=== PATIENT | male | born 1975 | race Caucasian/White ===

== ENCOUNTER 2019-08-18 00:56 | Emergency (ER) | payer BC, SELFPAY ==
--- NOTE | ~2019-08-18 | XR_ITS ---
EXAMINATION: XR chest 2V DATE: 08/18/2019 01:38 INDICATION: Shortness of breath and anxiety TECHNIQUE: PA and lateral views of the chest were obtained. COMPARISON: None FINDINGS: Mild biapical pleural-parenchymal scarring. No other airspace opacities, pulmonary edema, pleural eff usion or pneumothorax. The cardiomediastinal silhouette is normal. Visualized bones and soft tissues are unremarkable. IMPRESSION: 1. No acute cardiopulmonary disease. Reviewed, dictated and finalized at location A.
[2019-08-18 00:59] VITALS: BP 155/96; PULSE 65; RESP 20; TEMP 36.5; O2SAT 100
--- NOTE | 2019-08-18 01:20 | ECG_ITS ---
Measurements Intervals [place] Rate: 64 P: 56 HI: 161 QRS: -44 QRSD: 108 T: 20 QT: 382 QTc: 397 Interpretive Statements SINUS RHYTHM LEFT AXIS DEVIATION BASELINE ARTIFACT- I, III, AVF BORDERLINE ECG Electronically Signed On 08-18-2019 7:05:26 CDT by Denver Silverio D.O.
--- NOTE | 2019-08-18 01:21 | ED.GENADULT ---
HPI - General Adult General Chief complaint: Unspecified Stated complaint: anxiety Time Seen by Provider: 08/18/19 01:07 History of Present Illness HPI narrative: Patient presents via personal car for excessive stress and anxiety. He says he cannot sleep because every time he falls asleep he wakes up feeling short of breath. He says he has not slept in 3 days. He has had episodes like this before. He has Xanax at home and try to have one which did not help. He has never seen a psychiatrist. He sometimes drinks more than a small amount. He last drank 3 days ago. He is a mortgage operations manager. He has no pain and he has not been sick recently. He takes testosterone shots, but his last check his testosterone was excessively high. He went on vacation a few weeks ago and took extra shots before the vacation. He is delaying his shots now until the level comes back into the normal range. His PCP is at [place]. Onset (ago): day(s) Severity: severe Related Data Allergies Allergy/AdvReac Type Severity Reaction Status Date / Time bacitracin Allergy Redness of Verified 08/18/19 01:01 [From Neosporin Skin ([id number])] neomycin Allergy Redness of Verified 08/18/19 01:01 [From Neosporin Skin ([id number])] polymyxin B Allergy Redness of Verified 08/18/19 01:01 [From Neosporin Skin ([id number])] Review of Systems Review of Systems: Narrative: CONSTITUTIONAL: Denies fever, chills, or sweats. EYES: Denies visual changes, redness, or discharge. ENT: Denies rhinorrhea, congestion, sore throat, or otalgia. CARDIOVASCULAR: Denies chest pain, palpitations, or edema. RESPIRATORY: Denies cough GASTROINTESTINAL: Denies abdominal pain, nausea, vomiting, or diarrhea. GENITOURINARY: Denies dysuria or hematuria. SKIN: Denies rash or itching. MUSCULOSKELETAL: Denies back pain, joint pain, or myalgia. NEUROLOGIC: Denies headache, numbness, or weakness. PSYCHIATRIC: He has insomnia and severe anxiety.. [facility] Past Medical History Medical History (Updated 08/18/19 @ 01:30 by Samantha Segovia MD) Anxiety Hypomania Hypotestosteronism Insomnia Surgical History Surgical History (Updated 08/18/19 @ 01:22 by Samantha Segovia MD) History of appendectomy History of lumbar laminectomy History of rhinoplasty Social History Social History (Updated 08/18/19 @ 01:22 by Samantha Segovia MD) Smoking status: Never smoker Alcohol intake: current Substance use: current Substance use type: marijuana Exam Narrative: Exam Narrative: GENERAL: A well muscled man with full unkempt hair, pacing the room, with frequent sighs. HEAD: Normocephalic, atraumatic. EYES: PERRLA and EOMI. ENT: Nares clear, no rhinorrhea or epistaxis. Mucous membranes moist. NECK: Supple. CHEST: Clear to auscultation. No respiratory distress. HEART: Regular rate and rhythm. No murmur heard. Normal peripheral pulses. ABDOMEN: Soft, nontender, nondistended, normal active bowel sounds. EXTREMITIES: Normal range of motion. No edema. SKIN: Warm, dry, no rash. NEURO: No focal deficits. Alert and oriented x3. PSYCH: Appears very worried. Course Reevaluation(s) Reevaluation #1: Went in to tell the patient that all of his studies were normal. That I could find no disease that should cause shortness of breath, and that he could go home and take a couple of his Xanax to get to sleep tonight. Otherwise his 5 sleeping pills will be available at his pharmacy tomorrow. Date: 08/18/19 Time: 02:05 Vital Signs Vital signs: Vital Signs Temperature 97.7 F 08/18/19 00:59 Pulse Rate 65 08/18/19 00:59 Respiratory Rate 20 08/18/19 00:59 Blood Pressure 155/96 H 08/18/19 00:59 Pulse Oximetry 100 08/18/19 00:59 Temperature 97.7 F 08/18/19 00:59 Pulse Rate 74 08/18/19 01:27 Respiratory Rate 18 08/18/19 01:27 Blood Pressure 154/84 H 08/18/19 01:27 Pulse Oximetry 98 08/18/19 01:27 Medical Decision Making Medical Records Me
[2019-08-18 01:26] VITALS: PULSE 64
[2019-08-18 01:27] VITALS: BP 154/84; PULSE 74; RESP 18; O2SAT 98
[2019-08-18 01:40] LABS: Basophils Absolute Auto 0.1 K/mm3 (0.0-0.1); Basophils Percent Auto 1.2 % (0.2-1.2); Eosinophils Absolute Auto 0.4 K/mm3 (0-0.3); Eosinophils Percent Auto 5.2 % (0-4.4); Hematocrit 46.5 % (42.0-52.0); Hemoglobin 15.8 g/dL (14.0-18.0); Immature Granulocyte Absolute 0.02 K/mm3 (0.00-0.031); Immature Granulocyte Percent A 0.3 % (0-0.5); Lymphocytes Absolute Auto 3.72 K/mm3 (0.9-3.2); Lymphocytes Percent Auto 48.1 % (18.3-44.2); Mean Corpuscular Hemoglobin 31.1 pg (26-34); Mean Corpuscular Volume 91.5 fl (80-100); Mean Platelet Volume 9.5 fl (7.4-10.4); Monocytes Absolute Auto 0.8 K/mm3 (0.1-0.6); Monocytes Percent Auto 10.9 % (2.6-8.5); Neutrophils Absolute Auto 2.7 K/mm3 (1.3-6.7); Neutrophils Percent Auto 34.3 % (45.5-73.1); Platelet Count Result 277 k/mm3 (150-375); Red Blood Count 5.08 M/mm3 (4.6-6.20); Red Cell Distribution Width 12.8 % (11.5-14.5); White Blood Count 7.7 K/mm3 (4.5-10.0)
[2019-08-18 01:45] LABS: Ethanol < 10 mg/dL (<10)
[2019-08-18 01:46] LABS: Alanine Aminotransferase 56 U/L (4-50); Alkaline Phosphatase 37 U/L (38-126); Aspartate Amino Transferase 42 U/L (17-59); Bilirubin,Total 0.2 mg/dL (0.2-1.3); Blood Urea Nitrogen 17 mg/dL (9-20); Calcium 8.7 mg/dL (8.4-10.2); Carbon Dioxide 24 mmol/L (22-30); Chloride 106 mmol/L (98-107); Estimated Glomerular Filt Rate > 60; Glucose 95 mg/dL (75-110); Potassium 3.7 mmol/L (3.4-5.0); Sodium 137 mmol/L (137-145)
[2019-08-18 01:51] LABS: D Dimer 0.27 ug/mL (<0.48)
[2019-08-18 01:57] LABS: NT Pro B Type Natriuretic Pept 42 PG/ML (5-100)
[2019-08-18 02:22] VITALS: BP 120/72; PULSE 64; RESP 18; O2SAT 98
== END 2019-08-18 02:24 | disposition home or self-care (01) ==
LOC: ANHED 01:52
PROVIDERS: Emergency Provider Emergency Medicine; PCP Internal Medicine Endocrinology, Diabetes & Metabolism
DX: F41.9 Anxiety disorder, unspecified (principal); G47.00 Insomnia, unspecified; E29.1 Testicular hypofunction; R94.31 Abnormal electrocardiogram [ECG] [EKG]
CPT/HCPCS: 36415; 71046; 80053; 80307; 83880; 85025; 85380; 93005; 99283

== ENCOUNTER → 2019-11-25 10:50 | Outpatient (CLI) | payer BC, SELFPAY ==
--- NOTE | ~2019-11-25 | US_ITS ---
US right upper quadrant INDICATION: Elevated liver function tests. Transaminitis. PROCEDURE: Realtime right upper abdominal ultrasound. COMPARISON: No prior studies for comparison. FINDINGS: The pancreas is normal without focal mass or pancreatic ductal dilation. Liver echotexture is normal without focal mass or intrahepatic biliary dilatation. There is normal directional flow i n the portal vein. The gallbladder is normal without stones, gallbladder wall thickening or pericholecystic fluid. Comm on bile duct measures 3 mm. No sonographic Rice's sign. IMPRESSION: 1: Normal limited abdominal ultrasound. Reviewed, dictated and finalized at location B.
== END ==
PROVIDERS: Visit Provider Internal Medicine Gastroenterology
DX: R74.0 Nonspecific elevation of levels of transaminase and lactic acid dehydrogenase [LDH] (principal)
CPT/HCPCS: 76705

== ENCOUNTER 2019-12-21 16:15 | Emergency (ER) | payer OTHER, BC, SELFPAY ==
[2019-12-21] VITALS (11 sets, daily range): BP systolic 133–182; BP diastolic 77–98; PULSE 58–78; RESP 17–20; TEMP 36.3–36.7; O2SAT 97–100
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
--- NOTE | ~2019-12-21 | CT_ITS ---
EXAMINATION: CT thoracic lumbar wo con DATE: 12/21/2019 17:26 INDICATION: TECHNIQUE: Computed tomography (CT) of the thoracic and lumbar spine was performed without intravenou s contrast. The mA was adjusted according to patient size. Iterative reconstruction technique was emp loyed. Exam dose: 2036.80 mGy-cm total exam DLP. Thoracic spine COMPARISON: None FINDINGS: Mild thoracic scoliosis. No thoracic spine fracture or dislocation or bone destruction is e vident. Left L5 laminectomy. No fracture or spondylolisthesis. There is moderately severe degenerative disease at L5-S1. IMPRESSION: No thoracic or lumbar spine fracture is detected. Status post left L5 laminectomy Mildly severe degenerative disc disease at L5-S1 Reviewed, dictated and finalized at Location A. Reviewed, dictated and finalized at location A.
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
[2019-12-21] MEDS: diazePAM INJ (*CRX) 10 MG/2 ML SYRINGE 5 MG IM (17:50)
[2019-12-21] MEDS: KETOROLAC (*BKC) 60 MG/2 ML VIAL IM (17:50)
[2019-12-21] MEDS: ONDANSETRON INJ 4 MG/2 ML VIAL IV PUSH (18:50)
[2019-12-21] MEDS: MORPHINE SULFATE (*CRX) 4 MG/ML INJ IV PUSH (18:50)
--- NOTE | 2019-12-21 19:02 | PC.NURSE ---
awa called to transfer patient to [facility] CHRISTINE [address]
--- NOTE | 2019-12-21 19:43 | PC.NURSE ---
called [facility] to update ETA> ETA 20 minutes.
[2019-12-21] MEDS: HYDROmorphone HCL INJ (*CRX) 1 MG/ML SYR 0.5 MG IV PUSH (20:24)
== END 2019-12-21 20:42 | disposition short-term general hospital (02) ==
PROVIDERS: Emergency Provider Family Medicine
DX: S12.191A Other nondisplaced fracture of second cervical vertebra, initial encounter for closed fracture (principal); S12.490A Other displaced fracture of fifth cervical vertebra, initial encounter for closed fracture; S12.590A Other displaced fracture of sixth cervical vertebra, initial encounter for closed fracture; K50.90 Crohn's disease, unspecified, without complications; V86.55XA Driver of 3- or 4- wheeled all-terrain vehicle (ATV) injured in nontraffic accident, initial encounter
CPT/HCPCS: 70450; 71046; 71110; 72125; 72128; 72131; 96372; 96374; 96375; 99285; J1170; J1885; J2270; J2405; J3360; L0140

== ENCOUNTER 2020-10-05 02:49 | Emergency (ER) | payer BC, SELFPAY ==
--- NOTE | ~2020-10-05 | XR_ITS ---
XR chest 1V portable 10/05/2020 03:52 Indication: Dyspnea. Possible pneumonia. Procedure: AP portable chest Comparison: 12/21/2019 Findings: Right basilar infiltrates. Heart size normal. No significant effusion or pneumothorax. No a cute osseous abnormality. Impression: 1: Right basilar infiltrates may represent atelectasis or developing pneumonia. Reviewed, dictated and finalized at location A. Impression: 1: Right basilar infiltrates may represent atelectasis or developing pneumonia.
[2020-10-05 02:57] VITALS: BP 149/89; PULSE 102; RESP 16; TEMP 36.7; O2SAT 99
--- NOTE | 2020-10-05 03:06 | ED.URI ---
HPI - URI/Sore Throat General Chief Complaint: Upper Respiratory Infection Stated Complaint: dehydrated/ family covid + Time Seen by Provider: 10/05/20 03:05 Source: patient Mode of arrival: ambulatory Limitations: no limitations History of Present Illness HPI Narrative: Patient is a 45-year-old male who presents for evaluation of intermittent fever, loss of sense of taste and smell. Patient states he has felt unwell over the past 10 days, states his was diagnosed with Covid 2 days prior to him. States he feels that he was exposed from his daughter who did well with the illness and did not have any adverse effect. Patient reports nausea, general malaise, intermittent fever. He denies any cough or shortness of breath. He denies chest pain. States he is exhausted. He has been ambulatory without any focal weakness or numbness. He reports congestion. He denies diarrhea. Related Data Allergies Allergy/AdvReac Type Severity Reaction Status Date / Time bacitracin Allergy Itching Verified 10/05/20 03:19 [From Neosporin ([id number])] neomycin Allergy Itching Verified 10/05/20 03:19 [From Neosporin ([id number])] polymyxin B Allergy Itching Verified 10/05/20 03:19 [From Neosporin ([id number])] Review of Systems Review of Systems: Narrative: CONSTITUTIONAL: Reports fever and chills EYES: Denies visual changes, redness, or discharge. ENT: Reports rhinorrhea and congestion CARDIOVASCULAR: Denies chest pain, palpitations, or edema. RESPIRATORY: Denies cough or dyspnea. GASTROINTESTINAL: Denies abdominal pain, reports nausea GENITOURINARY: Denies dysuria or hematuria. SKIN: Denies rash or itching. MUSCULOSKELETAL: Denies back pain, reports joint pain and myalgias NEUROLOGIC: Reports headache, denies focal weakness or numbness PMFSH Past Medical History Medical History Anxiety History of Crohn's disease Hypomania Hypotestosteronism Insomnia Surgical History Surgical History History of appendectomy History of lumbar laminectomy History of rhinoplasty Social History Social History Smoking status: Never smoker Alcohol intake: current Substance use: current Substance use type: marijuana Gender identity (if verbalized by the patient): Male Sexual Orientation (if Verbalized by the Patient): Straight or Heterosexual Exam Narrative: Exam Narrative: GENERAL: Awake, alert, conversant HEAD: Normocephalic, atraumatic. EYES: 2+ PERRLA and EOMI. ENT: Nares clear, no rhinorrhea or epistaxis. Mucous membranes moist. NECK: Supple. CHEST: No respiratory distress, breathing even and non labored HEART: Mildly tachycardic rate, sinus rhythm ABDOMEN:Non distended, non tender EXTREMITIES: Normal range of motion. No edema. SKIN: Warm, dry, no rash. NEURO:No focal deficits. Alert and oriented x3 Course Vital Signs Vital signs: Vital Signs Temperature 36.7 C 10/05/20 02:57 Pulse Rate 102 H 10/05/20 02:57 Respiratory Rate 16 10/05/20 02:57 Blood Pressure 149/89 H 10/05/20 02:57 Pulse Oximetry 99 10/05/20 02:57 Temperature 36.7 C 10/05/20 02:57 Pulse Rate 77 10/05/20 05:24 Respiratory Rate 14 10/05/20 05:24 Blood Pressure 167/87 H 10/05/20 05:24 Pulse Oximetry 100 10/05/20 05:24 MDM - URI/Sore Throat MDM Narrative Medical decision making narrative: Patient presenting for evaluation of general malaise, nausea in the setting of what is likely Covid infection given his is Covid positive. Patient at the time of assessment has mild tachycardia, no respiratory symptoms. Denies chest pain or shortness of breath. No anginal type symptoms. Laboratory results are reassuring. No significant kidney injury or electrolyte derangement. No evidence of rhabdomyolysis. Patient without any matty
[2020-10-05 03:18] VITALS: O2SAT 100
[2020-10-05] MEDS: SODIUM CHLORIDE 0.9% IV 1,000 ML 999 ML IV CONT (03:57)
[2020-10-05] MEDS: ONDANSETRON INJ 4 MG/2 ML VIAL IV PUSH (03:58)
[2020-10-05 04:22] LABS: Basophils Percent Auto 0.7 % (0.2-1.2); Eosinophils Percent Auto 0.5 % (0-4.4); Hematocrit 53.5 % (42.0-52.0); Hemoglobin 17.6 g/dL (14.0-18.0); Immature Granulocyte Absolute 0.01 K/mm3 (0.00-0.031); Immature Granulocyte Percent A 0.2 % (0-0.5); Lymphocytes Absolute Auto 1.14 K/mm3 (0.9-3.2); Lymphocytes Percent Auto 26.6 % (18.3-44.2); Mean Corpuscular HGB Conc 32.9 g/dl (32-36); Mean Corpuscular Hemoglobin 29.1 pg (26-34); Mean Corpuscular Volume 88.4 fl (80-100); Mean Platelet Volume 9.5 fl (7.4-10.4); Monocytes Absolute Auto 0.6 K/mm3 (0.1-0.6); Monocytes Percent Auto 14.7 % (2.6-8.5); Neutrophils Absolute Auto 2.5 K/mm3 (1.3-6.7); Neutrophils Percent Auto 57.3 % (45.5-73.1); Platelet Count Result 215 k/mm3 (150-375); Red Blood Count 6.05 M/mm3 (4.6-6.20); Red Cell Distribution Width 13.7 % (11.5-14.5); White Blood Count 4.3 K/mm3 (4.5-10.0)
[2020-10-05 04:37] LABS: Alanine Aminotransferase 37 U/L (4-50); Albumin Level 4.2 g/dL (3.5-5.1); Alkaline Phosphatase 42 U/L (38-126); Anion Gap 11 mmol/L (8-16); Aspartate Amino Transferase 38 U/L (17-59); Bilirubin,Total 0.6 mg/dL (0.2-1.3); Blood Urea Nitrogen 12 mg/dL (9-20); Calcium 9.3 mg/dL (8.4-10.2); Carbon Dioxide 27 mmol/L (22-30); Chloride 101 mmol/L (98-107); Creatine Kinase 148 U/L (55-170); Estimated CRCL calculation 72 ml/min; Estimated Glomerular Filt Rate 51; Glucose 87 mg/dL (65-110); Potassium 4.2 mmol/L (3.4-5.0); Sodium 139 mmol/L (137-145)
[2020-10-05 05:24] VITALS: BP 167/87; PULSE 77; RESP 14; O2SAT 100
[2020-10-05 07:00] VITALS: BP 161/96; PULSE 77; RESP 16; O2SAT 100
[2020-10-05 15:38] LABS: SARS-CoV-2 RNA PCR Positive
== END 2020-10-05 06:34 | disposition home or self-care (01) ==
PROVIDERS: Emergency Provider Emergency Medicine
DX: U07.1 COVID-19 (principal); J06.9 Acute upper respiratory infection, unspecified; I10 Essential (primary) hypertension; K50.90 Crohn's disease, unspecified, without complications
CPT/HCPCS: 36415; 71045; 80053; 82550; 85025; 96361; 96374; 96375; 99284; C9803; J0131; J2405; J7030; U0003; U0005

== ENCOUNTER 2020-11-25 21:55 | Observation (INO) | payer BC, SELFPAY ==
--- NOTE | ~2020-11-25 | XR_ITS ---
XR chest 2V DATE: 11/25/2020 22:36 INDICATION: Generalized chest pain, shortness of breath for one week TECHNIQUE: PA and lateral views COMPARISON: 10/05/2020 portable AP chest 08/18/2019 2 view chest FINDINGS: Status post lower anterior cervical spine surgical fusion. Normal heart size. No hilar or mediastinal enlargement. No pulmonary infiltrate or consolidation, ple ural effusion or pulmonary vascular congestion or pneumothorax. Mild thoracic scoliosis. IMPRESSION: No active cardiopulmonary disease Reviewed, dictated and finalized at location A.
--- NOTE | 2020-11-25 22:02 | ECG_ITS ---
Measurements Intervals [place] Rate: 108 P: MA: 0 QRS: -59 QRSD: 97 T: 44 QT: 304 QTc: 408 Interpretive Statements ATRIAL FIBRILLATION WITH RAPID VENTRICULAR RESPONSE LEFT ANTERIOR FASCICULAR BLOCK ABNORMAL ECG Electronically Signed On 11-26-2020 5:54:47 CDT by Denver Silverio D.O.
[2020-11-25 22:25] LABS: Basophils Absolute Auto 0.1 K/mm3 (0.0-0.1); Basophils Percent Auto 0.8 % (0.2-1.2); Eosinophils Absolute Auto 0.2 K/mm3 (0-0.3); Eosinophils Percent Auto 2.1 % (0-4.4); Hematocrit 51.3 % (42.0-52.0); Hemoglobin 16.8 g/dL (14.0-18.0); Immature Granulocyte Absolute 0.06 K/mm3 (0.00-0.031); Immature Granulocyte Percent A 0.5 % (0-0.5); Lymphocytes Absolute Auto 3.16 K/mm3 (0.9-3.2); Mean Corpuscular HGB Conc 32.7 g/dl (32-36); Mean Corpuscular Hemoglobin 29.5 pg (26-34); Mean Platelet Volume 9.1 fl (7.4-10.4); Monocytes Absolute Auto 0.8 K/mm3 (0.1-0.6); Monocytes Percent Auto 7.6 % (2.6-8.5); Neutrophils Absolute Auto 6.5 K/mm3 (1.3-6.7); Platelet Count Result 373 k/mm3 (150-375); Red Cell Distribution Width 14.7 % (11.5-14.5); White Blood Count 10.9 K/mm3 (4.5-10.0)
[2020-11-25 22:33] LABS: Anion Gap 11 mmol/L (8-16); Blood Urea Nitrogen 17 mg/dL (9-20); Calcium 8.8 mg/dL (8.4-10.2); Carbon Dioxide 21 mmol/L (22-30); Chloride 109 mmol/L (98-107); Estimated Glomerular Filt Rate 51; Glucose 129 mg/dL (65-110); Potassium 3.9 mmol/L (3.4-5.0); Sodium 141 mmol/L (137-145)
[2020-11-25 22:44] VITALS: BP 124/99; PULSE 101; RESP 19; O2SAT 98
[2020-11-25 22:45] LABS: Troponin I 0.016 ng/mL (0.000-0.034)
[2020-11-25 22:55] LABS: INR 0.9; Prothrombin Time 12.3 Seconds (11.1-14.7)
[2020-11-25 22:56] LABS: Partial Thromboplastin Time 30.8 SECONDS (22.3-36.8)
[2020-11-25] MEDS: ASPIRIN 81 MG CHEWABLE TABLET 324 MG PO (23:24)
[2020-11-25 23:45] VITALS: BP 126/78; PULSE 93; RESP 15; O2SAT 99
[2020-11-26] VITALS (20 sets, daily range): BP systolic 128–154; BP diastolic 66–104; PULSE 66–132; RESP 14–20; TEMP 36–36.9; O2SAT 98–100; BMI 30.8
--- NOTE | 2020-11-26 | ECHO_ITS ---
Patient Info Name: Rich Calle Age: 45 years : 1975 Gender: Male Ht: 73 in Wt: 230 lbs BSA: 2.34 m2 HR: 101 bpm BP: 141 / 81 mmHg Heart Rhythm: Atrial Fibrillation Exam Date: 11/26/2020 1:18 PM Exam Location: [facility] Pulmonary Patient Status: Outpatient Admit Date: 11/26/2020 Staff Ordering Physician: Robert Bear MD Community Development Officer: Prasanth Rice RDCS, RT Attending Provider: Heidi Santa PA-C Referring Physician: Chema ALATORRE; Exam Type: CA echo doppler color flow Study Info Indications I48.1 - Persistent atrial fibrillation Complete two-dimensional, color flow and Doppler transthoracic echocardiogram is performed. Strain analysis performed. Summary 1. Complete two-dimensional, color flow and Doppler transthoracic echocardiogram is performed. 2. Strain analysis performed. 3. Left ventricular chamber dimension is normal. 4. Left ventricular systolic function is mildly reduced, estimated at 50-55%. 5. There is moderately increased left ventricular wall thickness. 6. The left ventricular diastolic function is indeterminate. 7. Global longitudinal strain is abnormal at -10 %. 8. There is mild mitral valve regurgitation. 9. There is mild tricuspid valve regurgitation. Left Ventricle Left ventricular chamber dimension is normal. Left ventricular systolic function is mildly reduced, estimated at 50-55%. There is moderately increased left ventricular wall thickness. The left ventricular diastolic function is indeterminate. Global longitudinal strain is abnormal at -10 %. Right Ventricle Right ventricular chamber dimension is normal. Right ventricular systolic function is normal. Left Atria Left atrial chamber dimension is normal. Right Atria Right atrial chamber dimension is normal. Atrial Septum Intact interatrial septum visualized by color flow imaging. Aortic Valve The aortic valve is trileaflet. There is mild aortic valve sclerosis. There is no aortic valve stenosis. There is trace aortic valve regurgitation. Pulmonic Valve The pulmonic valve is normal. There is no pulmonic valve stenosis. There is trace pulmonic regurgitation. Mitral Valve The mitral valve has normal leaflets. There is no mitral valve stenosis. There is mild mitral valve regurgitation. Tricuspid Valve The tricuspid valve leaflets are normal. There is no significant tricuspid valve stenosis. There is mild tricuspid valve regurgitation. Pericardium/Pleural The pericardium appears normal. There is no pericardial effusion. Inferior Vena Cava Normal inferior vena cava with >50% collapse upon inspiration consistent with normal right atrial pressure, 5 mmHg. Aorta The aortic root size at the sinus of Valsalva is normal. The prox ascending aorta size is normal. Left Ventricular Outflow Tract Name Value Normal LVOT 2D LVOT Diameter 2.3 cm Mitral Valve Name Value Normal MV Doppler MV Decel [place]
--- NOTE | 2020-11-26 00:26 | ED.ARRPALP ---
HPI - Arrhythmia/Palpitations General Chief Complaint: Arrhythmia/Palpitations Stated Complaint: palpations Time Seen by Provider: 11/25/20 22:22 Source: patient Mode of arrival: ambulatory Limitations: no limitations History of Present Illness HPI narrative: 45-year-old male For a couple weeks after going on vacation he has been waking up suddenly at night short of breath and with racing heart and very anxious He has been using CPAP for about 6 months and it was originally helping but then he had to have it adjusted and he thinks it is now getting worse Because of the excessive waking up at night and difficulty getting back to sleep he has been getting drowsy during the day as well He received a prescription for Ambien and took 1 which she thought helped him sleep for about 45 minutes only and he was apprehensive about repeating the process this evening He has not had any chest pain and apart from being fast he had not noticed that his heart rate was irregular There is no cough or fever He does not smoke He works out quite a lot and is taking supplements for that in the past but is not actively taking any right now He is a light social drinker Related Data Allergies Allergy/AdvReac Type Severity Reaction Status Date / Time bacitracin Allergy Itching Verified 11/25/20 22:51 [From Neosporin ([id number])] neomycin Allergy Itching Verified 11/25/20 22:51 [From Neosporin ([id number])] polymyxin B Allergy Itching Verified 11/25/20 22:51 [From Neosporin ([id number])] Review of Systems Review of Systems: All systems reviewed & are unremarkable except as noted in HPI and below Constitutional: Constitutional: Reports no additional constitutional complaints, Denies chills, Reports fatigue, Denies fever(s), Denies headache(s) and Reports weakness Eyes: Eyes: Reports no additional eye complaints and Denies change in vision ENT: Denies headache(s) and Denies sore throat Cardiovascular: Cardiovascular: Denies chest pain, Reports rapid heart rate and Denies dyspnea Respiratory: Respiratory: Denies cough and Reports dyspnea Gastrointestinal: Gastrointestinal: Denies abdominal pain, Denies diarrhea and Denies vomiting Genitourinary: Genitourinary: Denies dysuria and Denies urinary frequency Musculoskeletal: Musculoskeletal: Denies deformity, Denies arthralgias, Denies joint swelling and Denies numbness Integumentary/Breasts: Skin/Breast: Denies rash and Denies wounds Neurologic: Denies headache(s), Denies focal weakness and Denies numbness Psychiatric: Psychiatric: Reports no additional psychiatric complaints Endocrine: Endocrine: Reports no additional endocrine complaints Hematologic/Lymphatic: Hematologic/Lymphatic: Reports no additional hematologic/lymphatic complaints Allergic/Immunologic: Allergic/Immunologic: Reports no additional allergic/immunologic complaints PMFSH Past Medical History Medical History Anxiety History of Crohn's disease Hypomania Hypotestosteronism Insomnia Surgical History Surgical History History of appendectomy History of lumbar laminectomy History of rhinoplasty Social History Social History Smoking status: Never smoker Alcohol intake: current Substance use: current Substance use type: marijuana Gender identity (if verbalized by the patient): Male Sexual Orientation (if Verbalized by the Patient): Straight or Heterosexual Exam Const: General: cooperative, healthy appearing and no acute distress Orientation/consciousness: patient oriented x3 (alert) HENMT: Head: normal to inspection, normocephalic and atraumatic Ears: external ears normal General nose exam: no epistaxis Mouth: Yes moist mucous membranes Eyes: Conjunctivae: conjunctivae normal EOM: EOMs i
[2020-11-26] MEDS: METOPROLOL TARTRATE TAB 25 MG, METOPROLOL TARTRATE TAB 12.5 MG 37.5 MG PO (01:08)
[2020-11-26] MEDS: ENOXAPARIN 100 MG/ML SYRINGE SUB-Q ×2 (01:10→10:11)
[2020-11-26 01:37] LABS: Troponin I 0.024 ng/mL (0.000-0.034)
[2020-11-26 01:56] LABS: Free T4 Free Thyroxine 0.76 ng/mL (0.78-2.19)
[2020-11-26] MEDS: LACTATED RINGERS 1,000 ML 50 ML IV CONT (02:35)
--- NOTE | 2020-11-26 03:39 | PM.IMHP ---
H&P: HPI History of Present Illness Date/Time: 11/26/20 03:39 Chief Complaint: Palpitations Narrative: This is a 45-year-old male with significant past medical history patient presented to the emergency room due to palpitations patient states that he has been having fast heart rate for the last several days or so he uses CPAP at nighttime and has been having problems wearing his CPAP as well feeling as fixated with his CPAP mask when his having episodes of palpitations he was on vacation last week and had to cut his vacation short due to feeling a lot of discomfort during these spells of pounding fast heart rate and went to visit his primary care physician and his ENT he was prescribed Ambien and trazodone he tried Ambien firs and only worked for 15 minutes after taking 2 hours to work. Patient denies any lightheadedness, dizziness, shortness of breath, cough, sputum production, fevers ,chills, rigors, nausea ,vomiting ,he had some discomfort on his left arm he denies use of any substances or alcohol or tobacco and no use of energy drinks. Preliminary workup in Emergency room was significant for atrial fibrillation with rapid ventricular response. Review of Systems Review of Systems: Palpitations, PND, insomnia. Constitutional: Constitutional: Denies chills, Denies fatigue, Denies fever(s), Denies lethargy and Denies malaise Eyes: Eyes: Denies change in vision ENT: Denies dysphagia, Denies dizziness, Denies nasal congestion, Denies nasal discharge, Denies nasal obstruction and Denies odynophagia Cardiovascular: Cardiovascular: Reports chest pain, Reports irregular heart rhythm, Reports palpitations and Reports paroxysmal nocturnal dyspnea Respiratory: Respiratory: Denies cough Gastrointestinal: Gastrointestinal: Denies abdominal pain, Denies diarrhea, Denies nausea and Denies vomiting Genitourinary: Genitourinary: Reports no additional male genitourinary complaints Musculoskeletal: Musculoskeletal: Reports no additional musculoskeletal complaints Integumentary/Breasts: Skin/Breast: Reports system reviewed and no additional complaints, except as docu Neurologic: Reports system reviewed and no additional complaints, except as documented Psychiatric: Psychiatric: Reports no additional psychiatric complaints Endocrine: Endocrine: Reports no additional endocrine complaints Hematologic/Lymphatic: Hematologic/Lymphatic: Reports no additional hematologic/lymphatic complaints Allergic/Immunologic: Allergic/Immunologic: Reports no additional allergic/immunologic complaints PMFSH Past Medical History Medical History Anxiety History of Crohn's disease Hypomania Hypotestosteronism Insomnia Surgical History Surgical History History of appendectomy History of lumbar laminectomy History of rhinoplasty Family History Family History (Updated 11/26/20 @ 02:24 by Ashley Dillard RN) Mother Hx of thyroidectomy Mother Thyroid malignant neoplasm Social History Social History Smoking status: Never smoker Alcohol intake: current Drinks per week: 8 Substance use: current Substance use type: marijuana Gender identity (if verbalized by the patient): Male Sexual Orientation (if Verbalized by the Patient): Straight or Heterosexual Spiritual care concerns: No Meds Home Medications and Allergies Home Medications Medication Instructions Recorded Confirmed Type zolpidem 5 mg PO DAILY 11/26/20 11/26/20 History Allergies Allergy/AdvReac Type Severity Reaction Status Date / Time bacitracin Allergy Itching Verified 11/25/20 22:51 [From Neosporin ([id number])] neomycin Allergy Itching Verified 11/25/20 22:51 [From Neosporin ([id number])] polymyxin B Allergy Itching Verified 11/25/20 22:51 [From Neosporin (timothy-saturnino-
[2020-11-26] MEDS: LORazepam INJ (*CRX) 2 MG/ML VIAL 1 MG IV PUSH (03:44)
[2020-11-26] MEDS: WATER FOR IRRIGATION, STERILE 1,000 ML BOTTLE 1000 ML (03:45)
[2020-11-26 05:08] LABS: Troponin I 0.021 ng/mL (0.000-0.034)
[2020-11-26 09:36] LABS: Anion Gap 12 mmol/L (8-16); Blood Urea Nitrogen 18 mg/dL (9-20); Calcium 8.5 mg/dL (8.4-10.2); Carbon Dioxide 22 mmol/L (22-30); Chloride 106 mmol/L (98-107); Estimated CRCL calculation 77 ml/min; Estimated Glomerular Filt Rate 55; Glucose 79 mg/dL (65-110); Potassium 4.3 mmol/L (3.4-5.0); Sodium 140 mmol/L (137-145)
--- NOTE | 2020-11-26 09:52 | PM.IMPN ---
Progress Note: A&P Assessment and Plan (1) Atrial fibrillation, new onset: Code(s): I48.91 - Unspecified atrial fibrillation Status: Acute Assessment and Plan: Patient with new onset atrial fibrillation. Was admitted with a cardiology consultation. Currently his atrial fibrillation is rate controlled, but does show fluctuations up into the 120s to 130s at times. He was given 1 dose of metoprolol tartrate in the emergency room, but has not been on any other rate control medications since admitted to the floor. Cardiology consulted and is going to be performing a (2) BONNIE on CPAP: Code(s): G47.33 - Obstructive sleep apnea (adult) (pediatric); Z99.89 - Dependence on other enabling machines and devices Status: Acute Assessment and Plan: Continue CPAP at nighttime (3) Paroxysmal nocturnal dyspnea: Code(s): R06.00 - Dyspnea, unspecified Status: Acute Assessment and Plan: Likely secondary to uncontrolled heart rate Continue to monitor Time Spent With Patient Time with patient: 25 - 35 minutes Subjective Date/time seen: 11/26/20 09:52 Interval history: Date of service 11/26/2020: The patient reports feeling well at this time. But sometimes he has episodes of palpitations, lightheadedness, shortness of breath, having trouble catching his breath. He thought it has been related to some ENT problems he has been dealing with and sleep apnea. But then the last few days he has noticed high heart rate and no improvement with rest so he came to the emergency room. Currently he does not feel any palpitations or arrhythmias. He denies any chest pain, shortness of breath, fever, chills, nausea, vomiting, urinary symptoms, leg swelling, calf pain, abdominal pain or any other symptoms at this time. Review of Systems Review of Systems: All systems reviewed & are unremarkable except as noted in HPI and below Exam Narrative: General: 45-year-old man laying on his right side in bed resting. Appears comfortable. In no acute distress. Skin: No jaundice or cyanosis. Good skin turgor. Neck: Full range of motion. Supple. Respiratory: Lungs are clear to auscultation bilaterally. No wheezing, rales or rhonchi. No bony chest wall tenderness. Cardiovascular: Irregularly irregular rhythm, normal rate. No murmur ausculated. Lower extremities: No lower extremity edema. Distal pulses are easily palpated. No calf tenderness to palpation. Gastrointestinal: The abdomen is soft, nontender and nondistended with active bowel sounds. Psychiatric: Lucid and oriented. Memory intact. Neurologic: No focal deficits. Speech is clear. No facial drooping. Objective Data Vital Signs Vital Signs: Vital Signs - 24 hr 11/25/20 22:44 11/25/20 23:45 11/26/20 00:30 Temperature Pulse Rate 101 H 93 96 Respiratory Rate 19 15 16 Blood Pressure 124/99 H 126/78 133/80 Pulse Oximetry 98 99 100 11/26/20 00:45 11/26/20 01:08 11/26/20 01:50 Temperature 98.4 F Pulse Rate 83 87 69 Respiratory Rate 20 20 Blood Pressure 128/76 154/104 H Pulse Oximetry 98 100 11/26/20 02:00 11/26/20 03:05 11/26/20 03:39 Temperature 98.1 F Pulse Rate 81 74 66 Respiratory Rate 18 Blood Pressure 130/84 Pulse Oximetry 99 100 11/26/20 04:00 11/26/20 06:00 11/26/20 07:15 Temperature 97.4 F L Pulse Rate 83 86 80 Respiratory Rate 18 20 Blood Pressure 148/88 H Pulse Oximetry 100 99 Intake/Output Intake/Output: Intake & Output 11/23/20 11/24/20 11/25/20 11/26/20 23:59 23:59 23:59 23:59 Intake Total 350 Output Total 300 Balance 50 Meds/Results Medications: Active Medications Generic Name Dose Route Start Last Admin Trade Name Freq PRN Reason Stop Dose Admin Enoxaparin Sodium 100 mg 11/26/20 09:00 Enoxaparin 100 Mg/Ml Syringe SUB-Q Q12H JG Lactated Ringer's 1,000 mls @ 50 mls/hr 11/26/20 00:40 11/26/20 02:35 Lr - Lactated Ringers Iv IV CONT 50 mls/
--- NOTE | 2020-11-26 10:11 | PM.CNCAR ---
Assessment and Plan Assessment and plan (1) Atrial fibrillation, new onset: Code(s): I48.91 - Unspecified atrial fibrillation Status: Acute Assessment and Plan: Patient has a longstanding history of palpitations. Uncertain if the atrial fibrillation is a new diagnosis or simply newly recognized. Regardless it is certainly bothering him significantly this point. Possibly brought on or exacerbated by his sleep apnea. He also is advised to reduce or eliminate his caffeine intake including the pre workout drinks. Also advised against alcohol and marijuana use. Will start him on metoprolol tartrate 25 mg p.o. b.i.d. will keep him NPO and I did talk about the risks benefits alternatives of OLENA guided cardioversion. He understands the risks and is willing to proceed in hopes of restoring sinus rhythm. I will also ordered a complete 2D echocardiogram with Doppler to evaluate for any evidence of structural heart disease. He will need anticoagulation for least 1 month following cardioversion. Will use Xarelto 20 mg p.o. daily. He has received a dose of enoxaparin today pre cardioversion. Long-term he has a chads Vasc score of 0 and will either recommend no anti-platelet or anticoagulant therapy or anti-platelet alone. Obviously if he has recurrence of his atrial fibrillation following cardioversion, will consider antiarrhythmic therapy or given his young age, consideration referral to electrophysiology for ablation (2) BONNIE on CPAP: Code(s): G47.33 - Obstructive sleep apnea (adult) (pediatric); Z99.89 - Dependence on other enabling machines and devices Status: Acute Assessment and Plan: Encouraged compliant (3) Acute renal failure: Code(s): N17.9 - Acute kidney failure, unspecified Status: Acute Assessment and Plan: Like related to protein drinks that he uses for his workouts versus dehydration versus both (4) Hypotestosteronism: Code(s): E34.9 - Endocrine disorder, unspecified Status: Acute Assessment and Plan: On supplement History of Present Illness History of Present Illness Consult date/time: 11/26/20 10:11 Requesting physician: Antoni Rosen MD Consult reason: atrial fibrillation Reason For Visit: New onset atrial fibrillation Narrative: Date of service 11/26/2020 Reason consultation atrial fibrillation Requesting provider Dr. rosen History patient is a 45-year-old male who has a longstanding history of palpitations dating back over 20 years. He states that initially he felt brief episodes. Over the past 6-7 years he has noticed more episodes that last longer and can last for up to 6 hours at a time. They usually are worsened with activity and it makes him feel tired and short of breath. He also had a spell about 3-4 weeks ago which was more pronounced and lasted longer. He recently went on vacation and was not sleeping well. Was not tolerating his CPAP. [place] his heart pounding. He does use marijuana recreationally and drinks some alcohol but not to excess any longer. He in of cutting his vacation short because of valve poorly he felt. He came home and has continued to deal with palpitations to the point that last night because of difficulties with sleeping as well as the palpitations he decided come to the emergency room for further workup and evaluation. He was found to be in atrial fibrillation with rapid ventricular response. He was given some more metoprolol heart rate has been better but he still mildly tachycardic. He has associated symptoms of shortness of breath and last night had some dizziness whenever he was standing up. He denies any chest pain, paroxysmal nocturnal dyspnea, orthopnea, edema. It should be noted that he does work out routinely. On occasion he does uses preworkup drinks that he is uncertain what they contain. Review of Systems Review of Systems: All systems reviewed & are unremarkable except as noted in HPI and below Const
[2020-11-26 10:29] LABS: Magnesium 2.3 mg/dL (1.6-2.3)
--- NOTE | 2020-11-26 11:26 | WPDMODSED ---
Moderate Sedation Note-Pt Data Patient Data Diagnosis: Atrial fibrillation Present Complaint: Atrial fibrillation Procedure to be performed/Plan: Multiplanar transesophageal echocardiography with pulsed wave and color-flow Doppler Electrical cardioversion Possible Agitated saline study Moderate sedation Allergies Allergy/AdvReac Type Severity Reaction Status Date / Time bacitracin Allergy Itching Verified 11/25/20 22:51 [From Neosporin ([id number])] neomycin Allergy Itching Verified 11/25/20 22:51 [From Neosporin ([id number])] polymyxin B Allergy Itching Verified 11/25/20 22:51 [From Neosporin ([id number])] Home Medications Medication Instructions Recorded Confirmed Type zolpidem 5 mg PO DAILY 11/26/20 11/26/20 History Current Medications: Active Medications Enoxaparin Sodium (Enoxaparin 100 Mg/Ml Syringe) 100 mg SUB-Q Q12H JG Last Admin: 11/26/20 10:11 Dose: 100 mg Documented by: Fentanyl Citrate (Fentanyl Citrate Inj (*Crx) 100 Mcg/2 Ml Vial) 100 mcg IV PUSH ONCE PRN PRN Reason: Cardioversion/OLENA Lactated Ringer's (Lr - Lactated Ringers Iv) 1,000 mls @ 50 mls/hr IV CONT .Q20H JG Last Admin: 11/26/20 02:35 Dose: 50 mls/hr Documented by: Sodium Chloride (Normal Saline Iv) 1,000 mls @ 30 mls/hr IV CONT .Q24H JG Midazolam HCl (Midazolam Hcl (*Crx) 2 Mg/2 Ml Vial) 2 mg IV PUSH Q5M PRN PRN Reason: Cardioversion/OLENA Zolpidem Tartrate (Zolpidem Tartrate (*Crx) 5 Mg Tablet) 5 mg PO HS JG Sedation/Anesthesia: No previous sedation/anesthesia problems (including family history). [facility] Past Medical History Medical History Anxiety History of Crohn's disease Hypomania Hypotestosteronism Insomnia Surgical History Surgical History History of appendectomy History of lumbar laminectomy History of rhinoplasty Family History Family History Mother Hx of thyroidectomy Mother Thyroid malignant neoplasm Social History Social History Smoking status: Never smoker Alcohol intake: current Drinks per week: 8 Substance use: current Substance use type: marijuana Gender identity (if verbalized by the patient): Male Sexual Orientation (if Verbalized by the Patient): Straight or Heterosexual Spiritual care concerns: No Mod Sed Physical Exam Physical Exam Pre Procedural Exam: Normal: Appearance, Eyes, Ears, Nose, Neck, Throat, Airway, Lungs, Heart Size, Neuro Exam, Abdomen, Extremities and Skin and Variation: Heart Rate (Tachycardic) and Heart Rhythm (Irregular irregular) Hours since solid foods: 12 Hours since liquid intake: 12 Mallampati Classification: class II Internal Medicine - PN: Obj Da Vital Signs Vital Signs: Vital Signs - 24 hr 11/25/20 22:44 11/25/20 23:45 11/26/20 00:30 Temperature Pulse Rate 101 H 93 96 Respiratory Rate 19 15 16 Blood Pressure 124/99 H 126/78 133/80 Pulse Oximetry 98 99 100 11/26/20 00:45 11/26/20 01:08 11/26/20 01:50 Temperature 36.9 C Pulse Rate 83 87 69 Respiratory Rate 20 20 Blood Pressure 128/76 154/104 H Pulse Oximetry 98 100 11/26/20 02:00 11/26/20 03:05 11/26/20 03:39 Temperature 36.7 C Pulse Rate 81 74 66 Respiratory Rate 18 Blood Pressure 130/84 Pulse Oximetry 99 100 11/26/20 04:00 11/26/20 06:00 11/26/20 07:15 Temperature 36.3 C L Pulse Rate 83 86 80 Respiratory Rate 18 20 Blood Pressure 148/88 H Pulse Oximetry 100 99 11/26/20 08:00 11/26/20 10:00 Temperature Pulse Rate 124 H 101 H Respiratory Rate Blood Pressure Pulse Oximetry Intake/Output Intake/Output: Intake & Output 11/23/20 11/24/20 11/25/20 11/26/20 23:59 23:59 23:59 23:59 Intake Total 350 Output Total 300 Balance 50 Meds/Results Med
--- NOTE | 2020-11-26 12:13 | PM.OP ---
Procedure Note - Brief Procedure Note - Brief Date of procedure: 11/26/20 Pre-op diagnosis: New onset atrial fibrillation Post-op diagnosis: same Procedure performed: Attempted OLENA Moderate sedation Description of procedure: After discussing the risks, benefits alternatives of procedure patient agreeable via verbal and written informed consent. Risks discussed included esophageal rupture perforation, need for emergent surgery, bleeding, pain, infection, sore throat, skin irritation or burn. After establishing continuous telemetry monitoring, pulse oxygenation and serial blood pressure assessments time-out was taken procedure was started. Procedure start time 11:52 a.m. Procedure stop time 12 0 9 p.m. Medications used: Total 5 mg of Versed and 100 mcg fentanyl given in divided dosages. Medications were administered and patient was monitored by Celia Mendoza RN Complications: None Blood loss: None Surgeon: Robert Bear MD Findings: Despite adequate sedation, once the echo scope was inserted in the posterior pharynx patient immediately arose. He continued to have significant gagging and further moderate sedation could not be safely given. Therefore, further attempts were not made and will either re-attempt as an outpatient with anesthesia assistance using propofol or simply provide anticoagulation and perform cardioversion only after a minimum of 3-4 weeks of anticoagulation. Conclusion: Unsuccessful OLENA Moderate sedation was performed
--- NOTE | 2020-11-26 13:17 | PM.DS ---
DS: Admitting Diagnosis Discharge Date 11/26/20 Admitting Diagnosis Palpitations DS: Discharge Diagnosis Discharge Diagnosis (1) Atrial fibrillation, new onset: Code(s): I48.91 - Unspecified atrial fibrillation Status: Acute Assessment and Plan: Patient is a 45 year old man with BONNIE uses CPAP and follows with ENT, who presented to the ER with palpitations, SOB. Symptoms had been going on while on vacation 11/18/20. Patient was concerned so he came home early from vacation. He had issues with waking up short of breath night, intermittent palpitations. Patient states he has been having intermittent palpitations for the last 20 years. He called his primary care provider and his ENT who prescribed him Ambien to help him sleep at night. Symptoms became more constant, and tachycardic heart rate so he came to the ER for further evaluation. Initial vitals showed blood pressure 124/99, tachycardic heart rate 101 beats per minute, normal respiratory rate, oxygenation on room air, afebrile. In white blood cell count was slightly elevated on arrival at 10,900, normal H&H, normal differential, normal coag panel, creatinine slightly elevated at 1.5, BUN 17. Troponins were within normal range x3. TSH normal. Chest x-ray was normal. EKG showed AFib with RVR with heart rate 108 beats per minute. Admitted with new onset atrial fibrillatino and a cardiology consultation. Currently his atrial fibrillation is rate controlled, but does show fluctuations up into the 120s to 130s at times. He was given 1 dose of metoprolol tartrate in the emergency room. Patient was seen by the Cardiology team who attempted to perform a OLENA with cardioversion. The patient was sedated but upon insertion of the OLENA probe the patient awoke. Anesthesia tried increasing his sedation but was unsuccessful. The patient was taken back to the floor for his sedation to wear off. Cardiology started him on metoprolol tartrate 25 mg q.12 and is Xarelto blood thinner. Plan is for the patient to remain on these medications for 3-4 weeks and follow-up for a possible cardioversion at that time. Patient educated on things to avoid to trying prevent tachycardia. Follow-up with primary care in 1 week. Follow-up with cardiology in 2 weeks. Return to ER warnings given. The patient understands agrees the plan all questions answered. (2) BONNIE on CPAP: Code(s): G47.33 - Obstructive sleep apnea (adult) (pediatric); Z99.89 - Dependence on other enabling machines and devices Status: Acute Assessment and Plan: Continue CPAP at nighttime (3) Paroxysmal nocturnal dyspnea: Code(s): R06.00 - Dyspnea, unspecified Status: Acute DS: Summary Hospital Course Hospital Course: See above Status at Discharge Cognitive/behavioral status at discharge: Stable, improved. Time Spent with Patient Time attestation: Total time spent providing and/or coordinating discharge services: 43 Time spent: Greater than 30 minutes Exam Narrative: General: 45-year-old man laying on his right side in bed resting. Appears comfortable. In no acute distress. Skin: No jaundice or cyanosis. Good skin turgor. Neck: Full range of motion. Supple. Respiratory: Lungs are clear to auscultation bilaterally. No wheezing, rales or rhonchi. No bony chest wall tenderness. Cardiovascular: Irregularly irregular rhythm, normal rate. No murmur ausculated. Lower extremities: No lower extremity edema. Distal pulses are easily palpated. No calf tenderness to palpation. Gastrointestinal: The abdomen is soft, nontender and nondistended with active bowel sounds. Psychiatric: Lucid and oriented. Memory intact. Neurologic: No focal deficits. Speech is clear. No facial drooping. DS: Data Data Completed and Pending Labs on day of discharge: Labs from last 24 hours 11/26/20 11/26/20 11/26/20 04:15 04:15 04:15 WBC RBC Hgb Hct MCV MCH MCHC RDW Plt
[2020-11-26] MEDS: METOPROLOL TARTRATE 25 MG TABLET PO (13:48)
== END 2020-11-26 14:12 | disposition home or self-care (01) ==
LOC: ANHED 11-26 00:36 → ANHIMU 11-26 01:10
PROVIDERS: Emergency Medicine; Internal Medicine Cardiovascular Disease; Physician Assistant; Admitting Provider Internal Medicine; Emergency Provider Emergency Medicine; Visit Provider Family Medicine
PROC: (CPT 93312; principal; 2020-11-26 11:30)
DX: I48.91 Unspecified atrial fibrillation (principal); R00.2 Palpitations; G47.33 Obstructive sleep apnea (adult) (pediatric); Z99.89 Dependence on other enabling machines and devices; R06.00 Dyspnea, unspecified; N17.9 Acute kidney failure, unspecified
CPT/HCPCS: 36415; 71046; 80048; 83735; 84439; 84443; 84484; 85025; 85610; 85730; 93005; 93306; 96372; 96374; 99285; A9270; G0378; J1650; J2060; J2250; J3010; J7040; J7120

== ENCOUNTER → 2020-11-27 00:36 | Outpatient (CLI) | payer BC, SELFPAY ==
[2020-11-27 18:08] LABS: SARS-CoV-2 RNA PCR Positive
== END ==
PROVIDERS: Visit Provider Internal Medicine Cardiovascular Disease
DX: U07.1 COVID-19 (principal)
CPT/HCPCS: C9803; U0003; U0005

== ENCOUNTER 2021-04-09 10:37 | Day surgery (SDC) | payer BC, SELFPAY ==
[2021-04-09 10:39] VITALS: BP 131/54; PULSE 86; RESP 14; TEMP 36.3; O2SAT 100
[2021-04-09 12:54] LABS: Basophils Absolute Auto 0.1 K/mm3 (0.0-0.1); Basophils Percent Auto 0.8 % (0.2-1.2); Eosinophils Absolute Auto 0.5 K/mm3 (0-0.3); Eosinophils Percent Auto 4.5 % (0-4.4); Hematocrit 50.9 % (42.0-52.0); Hemoglobin 16.9 g/dL (14.0-18.0); Immature Granulocyte Absolute 0.06 K/mm3 (0.00-0.031); Immature Granulocyte Percent A 0.6 % (0-0.5); Lymphocytes Absolute Auto 2.14 K/mm3 (0.9-3.2); Lymphocytes Percent Auto 19.7 % (18.3-44.2); Mean Corpuscular HGB Conc 33.2 g/dl (32-36); Mean Corpuscular Hemoglobin 29.7 pg (26-34); Mean Corpuscular Volume 89.5 fl (80-100); Mean Platelet Volume 9.1 fl (7.4-10.4); Monocytes Absolute Auto 0.8 K/mm3 (0.1-0.6); Monocytes Percent Auto 7.6 % (2.6-8.5); Neutrophils Absolute Auto 7.3 K/mm3 (1.3-6.7); Neutrophils Percent Auto 66.8 % (45.5-73.1); Platelet Count Result 288 k/mm3 (150-375); Red Blood Count 5.69 M/mm3 (4.6-6.20); Red Cell Distribution Width 14.2 % (11.5-14.5); White Blood Count 10.9 K/mm3 (4.5-10.0)
[2021-04-09 13:05] LABS: INR 0.9; Prothrombin Time 12.1 Seconds (11.1-14.7)
[2021-04-09 13:06] LABS: Partial Thromboplastin Time 31.5 SECONDS (22.3-36.8)
--- NOTE | 2021-04-09 13:25 | ED.EPISTAXIS ---
HPI - Epistaxis General Chief complaint: Epistaxis Stated complaint: nose bleed Time Seen by Provider: 04/09/21 11:19 Source: patient Mode of arrival: ambulatory Limitations: no limitations History of Present Illness HPI Narrative: This is a 45 year old male that presents to the ER for nosebleed present since about an hour prior to arrival. Reports he had a nasal surgery 3 weeks ago. Reports over the last couple of days he has had several nosebleeds. Usually they last only a couple of minutes. Today it was ongoing for an hour which prompted him to be seen. He is not on any blood thinners. Denies fever. Related Data Home Medications Medication Instructions Recorded Confirmed zolpidem 5 mg PO DAILY 11/26/20 11/30/20 Allergies Allergy/AdvReac Type Severity Reaction Status Date / Time bacitracin Allergy Itching Verified 04/09/21 11:02 [From Neosporin ([id number])] neomycin Allergy Itching Verified 11/30/20 14:51 [From Neosporin ([id number])] polymyxin B Allergy Itching Verified 11/30/20 14:51 [From Neosporin ([id number])] Review of Systems Review of Systems: CONSTITUTIONAL: Denies fever ENT: Reports epistaxis All systems reviewed & are unremarkable except as noted in HPI and below PMFSH Past Medical History Medical History Acute renal failure Anxiety Atrial fibrillation, new onset History of Crohn's disease Hypomania Hypotestosteronism Insomnia BONNIE on CPAP Paroxysmal nocturnal dyspnea Surgical History Surgical History History of appendectomy History of lumbar laminectomy History of rhinoplasty Family History Family History Mother Hx of thyroidectomy Mother Thyroid malignant neoplasm Social History Social History Smoking status: Never smoker Alcohol intake: current Drinks per week: 8 Alcohol use details: social drinker Substance use: current Substance use type: marijuana Gender identity (if verbalized by the patient): Male Sexual Orientation (if Verbalized by the Patient): Straight or Heterosexual Spiritual care concerns: No Exam Narrative: GENERAL: Well-appearing, well-nourished, and in no acute distress. HEAD: Normocephalic, atraumatic. EYES: EOMI. ENT: Left sided epistaxis. Mucous membranes moist. Oropharynx with mild oozing of blood. Left TM with blood present behind it NECK: Supple. No adenopathy or masses. CHEST: No respiratory distress. HEART: Regular rate EXTREMITIES: Normal range of motion. No edema. SKIN: Warm, dry, no rash. NEURO: No focal deficits. Alert and oriented x3. PSYCH: Normal mood and affect Course Consultations Consultation #1: Spoke with Dr. Villela about patient and workup who will come evaluate the patient. Date: 04/09/21 Time: 13:00 Vital Signs Vital signs: Vital Signs Temperature 97.3 F L 04/09/21 10:39 Pulse Rate 86 04/09/21 10:39 Respiratory Rate 14 04/09/21 10:39 Blood Pressure 131/54 L 04/09/21 10:39 Pulse Oximetry 100 04/09/21 10:39 Temperature 97.2 F L 04/09/21 16:46 Pulse Rate 82 04/09/21 17:37 Respiratory Rate 20 04/09/21 17:37 Blood Pressure 152/78 H 04/09/21 17:37 Pulse Oximetry 100 04/09/21 17:01 Procedures Epistaxis Control left: Epistaxis Control Date: 04/09/21 Epistaxis Control Time: 13:00 Nose Prepped With: phenylephrine Direct Inspection: unable to visualize Clots Removed by: blowing nose Cautery Used: none Device Inserted: nasal tampon Device Size: 7 Patient Tolerated Procedure: well Complications: continued epistaxis MDM - Epistaxis MDM Narrative Medical decision making narrative: Patient presents to the ER for epistaxis. Recently had a nasal surgery with Dr. Bell
--- NOTE | 2021-04-09 14:17 | WPDCN ---
Assessment and Plan Assessment and plan (1) Epistaxis: Code(s): R04.0 - Epistaxis Status: Acute Assessment and Plan: This patient is having epistaxis on the left, 3 weeks after celon turbinoplasty in office. Took two aspirin the other night which may have contributed to worsening of bleeding. Unable to control with topical medication and 7.5cm rhinorocket, so will take to OR for control of bleeding. risks discussed with patient and who understand and agree to proceed with surgery. HPI Data of Consult Date/Time: 04/09/21 14:17 Primary Care Provider: PHYSICIAN NOT ON STAFF Consult Narrative Narrative: Rich Calle Jr. is a 45 year old male who underwent in-office turbinoplasty 3 weeks ago. He started having several small bleeds yesterday at home, but this seemed to subside. Hx of Xarelto use for afib as well. He went out to dinner, had two beers, had some heart palpitations and took two aspirins and this morning he woke up with a more robust left sided nose bleed that did not subside after oxymetazoline. Because of this he came to the ED where attempts to control were attempted with topical therapy followed by compressive therapy with rhinorocket which was not successful in controlling the bleed. I was called in to evaluate further. Review of Systems Review of Systems: epistaxis, facial pain, left otalgia and muffled hearing as well. All systems reviewed & are unremarkable except as noted in HPI and below PMFSH Past Medical History Medical History Acute renal failure Anxiety Atrial fibrillation, new onset History of Crohn's disease Hypomania Hypotestosteronism Insomnia BONNIE on CPAP Paroxysmal nocturnal dyspnea Surgical History Surgical History History of appendectomy History of lumbar laminectomy History of rhinoplasty Family History Family History Mother Hx of thyroidectomy Mother Thyroid malignant neoplasm Social History Social History Smoking status: Never smoker Alcohol intake: current Drinks per week: 8 Alcohol use details: social drinker Substance use: current Substance use type: marijuana Gender identity (if verbalized by the patient): Male Sexual Orientation (if Verbalized by the Patient): Straight or Heterosexual Spiritual care concerns: No Meds Home Medications and Allergies Home Medications Medication Instructions Recorded Confirmed Type metoprolol tartrate 25 mg PO Q12HR #60 tablet 11/26/20 11/30/20 Rx rivaroxaban [Xarelto] 20 mg PO QPM #30 tablet 11/26/20 11/30/20 Rx zolpidem 5 mg PO DAILY 11/26/20 11/30/20 History Allergies Allergy/AdvReac Type Severity Reaction Status Date / Time bacitracin Allergy Itching Verified 04/09/21 11:02 [From Neosporin ([id number])] neomycin Allergy Itching Verified 11/30/20 14:51 [From Neosporin ([id number])] polymyxin B Allergy Itching Verified 11/30/20 14:51 [From Neosporin ([id number])] Vital Signs Vital Signs - 24 hr 04/09/21 10:39 Temperature 36.3 C L Pulse Rate 86 Respiratory Rate 14 Blood Pressure 131/54 L Pulse Oximetry 100 Exam Narrative: Has rhinorocket in on left, is actively bleeding around the packing and out of the mouth as well. Did not remove packing. Results Labs CBC & Chem 7: 04/09/21 12:32 Labs: Short CBC 04/09/21 Range/Units 12:32 WBC 10.9 H (4.5-10.0) K/mm3 Hgb 16.9 (14.0-18.0) g/dL Hct 50.9 (42.0-52.0) % Plt Count 288 (150-375) k/mm3
--- NOTE | 2021-04-09 15:34 | WPDANESEPPF ---
Anes - Initial Pre Proc Eval Procedure: Operation Date: 04/09/21 15:30 Proposed Procedures p Cautery Of Nose - Tim Villela MD Date/Time: 04/09/21 15:34 Surgeon: Tim Villela MD Pre Op Diagnosis: nose bleed Patient Data Age: 45 Gender: M Height: 1.85 m Weight: 110 kg Last Vital Signs Temp 36.3 C L 04/09/21 10:39 Pulse 86 04/09/21 10:39 Resp 14 04/09/21 10:39 BP 131/54 L 04/09/21 10:39 Pulse Ox 100 04/09/21 10:39 Allergies Allergy/AdvReac Type Severity Reaction Status Date / Time bacitracin Allergy Itching Verified 04/09/21 11:02 [From Neosporin ([id number])] neomycin Allergy Itching Verified 11/30/20 14:51 [From Neosporin ([id number])] polymyxin B Allergy Itching Verified 11/30/20 14:51 [From Neosporin ([id number])] Home Medications Medication Instructions Recorded Confirmed Type metoprolol tartrate 25 mg PO Q12HR #60 tablet 11/26/20 11/30/20 Rx rivaroxaban [Xarelto] 20 mg PO QPM #30 tablet 11/26/20 11/30/20 Rx zolpidem 5 mg PO DAILY 11/26/20 11/30/20 History Laboratory Tests 04/09/21 04/09/21 12:32 12:32 WBC 10.9 K/mm3 H K/mm3 (4.5-10.0) RBC 5.69 M/mm3 M/mm3 (4.6-6.20) Hgb 16.9 g/dL g/dL (14.0-18.0) Hct 50.9 % % (42.0-52.0) MCV 89.5 fl fl (80-100) MCH 29.7 pg pg (26-34) MCHC 33.2 g/dl g/dl (32-36) RDW 14.2 % % (11.5-14.5) Plt Count 288 k/mm3 k/mm3 (150-375) MPV 9.1 fl fl (7.4-10.4) Immature Gran % (Auto) 0.6 % H % (0-0.5) Neut % (Auto) 66.8 % % (45.5-73.1) Lymph % (Auto) 19.7 % % (18.3-44.2) Jones % (Auto) 7.6 % % (2.6-8.5) Eos % (Auto) 4.5 % H % (0-4.4) Baso % (Auto) 0.8 % % (0.2-1.2) Lymph # (Auto) 2.14 K/mm3 K/mm3 (0.9-3.2) Jones # (Auto) 0.8 K/mm3 H K/mm3 (0.1-0.6) Eos # (Auto) 0.5 K/mm3 H K/mm3 (0-0.3) Baso # (Auto) 0.1 K/mm3 K/mm3 (0.0-0.1) Abs Immat Gran (auto) 0.06 K/mm3 H K/mm3 (0.00-0.031) Absolute Neuts (auto) 7.3 K/mm3 H K/mm3 (1.3-6.7) Absolute Nucleated RBC 0.0 K/mm3 K/mm3 (0.0-0.012) Nucleated RBC % 0.0 % % (0.0-0.2) PT 12.1 Seconds Seconds (11.1-14.7) INR 0.9 APTT 31.5 SECONDS SECONDS (22.3-36.8) Patient hx anesthesia problems: none Family hx anesthesia problems: none Results Review: All pre-operative results and documents have been reviewed as part of the pre-operative evaluation. [facility] Past Medical History Medical History Acute renal failure Anxiety Atrial fibrillation, new onset History of Crohn's disease Hypomania Hypotestosteronism Insomnia BONNIE on CPAP Paroxysmal nocturnal dyspnea Surgical History Surgical History History of appendectomy History of lumbar laminectomy History of rhinoplasty Family History Family History Mother Hx of thyroidectomy Mother Thyroid malignant neoplasm Social History Social History Smoking status: Never smoker Alcohol intake: current Drinks per week: 8 Alcohol use details: social drinker Substance use: current Substance use type: marijuana Gender identity (if verbalized by the patient): Male Sexual Orientation (if Verbalized by the Patient): Straight or Heterosexual Spiritual care concerns: No Anes - Eval Final PreProcedure Day of Procedure 04/09/21 15:34 Patient weight: obese Heart: regular rate and rhythm Lungs: clear to auscultation and normal air movement Airway: Mallampati scale class II Neurological: alert and oriented Last oral intake: >/= 8 hours ASA classification: III Emergent: no Anesthetic plan: proceed Anesthesia type and monitoring: general ETT Results Review: A
[2021-04-09 15:40] VITALS: BP 150/83; PULSE 91; RESP 16; O2SAT 100
[2021-04-09] MEDS: LACTATED RINGERS 1,000 ML 30 ML IV CONT (15:40)
[2021-04-09] MEDS: LIDO 1%/EPINEPHRINE/PF 1:200,000 30 ML VIAL XX (15:56)
[2021-04-09] MEDS: OXYMETAZOLINE HCL 0.05% NAS 15 ML BTL (*BKC) 1 SPRAY NASAL (15:58)
--- NOTE | 2021-04-09 16:27 | W.PM.PROC2 ---
Procedure Note - Detailed Date of Procedure 04/09/21 Pre-op Diagnosis epistaxis Post-op Diagnosis same Procedure Performed Control of epistaxis, complex. Endoscopic. Surgeon Tim Villela MD Anesthesia general Indications Epistaxis Findings Left inferior turbinate, the medial and lateral surface were bleeding and required cauterization. Description of Procedure Rich had left epistaxis at home, 3 weeks after an in-office turbinoplasty and came in to the ED today with active bleeding that required going to OR for control. After consent was obtained, he was brought to the OR and placed under GETA. Timeout was performed and he was draped in standard fashion for control of epistaxis. Left rhinorocket was deflated and removed from the left nares. Afrin soaked cottonoids placed bilaterally. After 5 minutes they were removed. The nasal passages were examined endoscopically. There was some residual crusting and material from topical epistaxis treatments from the ED that were debrided and removed. This revealed bleeding from the medial surface of the left inferior turbinate. This was treated with suction electrocautery at 20 in several locations. Hemostasis was obtained on that area of the turbinate but there was still active bleeding present. The lateral surface of the inferior turbinate was examined and reflected with a freer elevator which revealed an actively pumping vessel in the inferior meatus along the turbinate. This was cauterized with bipolar and monopolar cautery several times until adequately controlled, with some difficulty. The nose was then repacked with cottonoids soaked in afrin and he was observed for several minutes. The packing was removed, no further bleeding apperciated. Afrin soaked nasopore placed under the turbinate and packed up in the inferior meatus. No further bleeding noted bilaterally. Care of the patient was returned to anesthesia. The stomach was decompressed with orogastric tube. He was then extubated and transferred to PACU in stable condition with no further bleeding present. Estimated Blood Loss 20 Drains No Packing Yes (nasopore on left) Pathology none sent Complications No immediate complications Condition stable Disposition PACU
[2021-04-09 16:46] VITALS: BP 153/93; PULSE 84; RESP 17; TEMP 36.2; O2SAT 100
[2021-04-09 17:01] VITALS: BP 140/85; PULSE 87; RESP 20; O2SAT 100
[2021-04-09 17:15] VITALS: BP 157/93; PULSE 81
[2021-04-09 17:37] VITALS: BP 152/78; PULSE 82; RESP 20
[2021-04-09] MEDS: oxyCODONE HCL (*CRX) 5 MG TAB IR PO (17:45)
== END 2021-04-09 18:06 | disposition home or self-care (01) ==
LOC: ANHED 11:19 → ANHSURGERY 14:32
PROVIDERS: Physician Assistant; Emergency Provider General Practice; Visit Provider Otolaryngology
DX: J95.830 Postprocedural hemorrhage of a respiratory system organ or structure following a respiratory system procedure (principal); R04.0 Epistaxis; Y83.8 Other surgical procedures as the cause of abnormal reaction of the patient, or of later complication, without mention of misadventure at the time of the procedure; I48.91 Unspecified atrial fibrillation; G47.33 Obstructive sleep apnea (adult) (pediatric); F41.9 Anxiety disorder, unspecified; K50.90 Crohn's disease, unspecified, without complications; F12.90 Cannabis use, unspecified, uncomplicated; Z79.01 Long term (current) use of anticoagulants; E66.9 Obesity, unspecified; Z68.32 Body mass index [BMI] 32.0-32.9, adult
CPT/HCPCS: 31238; 30901; 36415; 85025; 85610; 85730; 99285; A9270; J0330; J1100; J2250; J2405; J2704; J3010; J7120

== ENCOUNTER 2021-10-03 06:33 | Emergency (ER) | payer OTHER, SELFPAY ==
[2021-10-03 06:42] VITALS: BP 143/88; PULSE 67; RESP 16; TEMP 36.7; O2SAT 99
[2021-10-03] MEDS: ACETAMINOPHEN 500 MG TABLET 1000 MG PO (07:28)
--- NOTE | 2021-10-03 07:50 | ED.GENADULT ---
HPI - General Adult General Chief complaint: Unspecified Stated complaint: rectal pain Time Seen by Provider: 10/03/21 07:01 Source: RN notes reviewed History of Present Illness HPI narrative: Patient presents emergency department from home for hemorrhoid. Patient states currently has had a hemorrhoid for the past 2 days. States that it is painful and he has been using hydrocortisone cream on the hemorrhoid. States he has a history of recurrent hemorrhoids since he was in [employer] [place] and he has seen a laboratory administrative director before in the past but is not had any banding denies any bleeding from the hemorrhoid but states that it is painful he states that they have had to be lanced before in the past and again today as he is going out of town on Sunday and believes he might need the hemorrhoid lanced, he denies any fevers or chills abdominal pain nausea vomiting or any other symptoms Related Data Home Medications Medication Instructions Recorded Confirmed zolpidem 5 mg tablet 5 mg PO DAILY 11/26/20 11/30/20 Allergies Allergy/AdvReac Type Severity Reaction Status Date / Time bacitracin Allergy Itching Verified 10/03/21 06:46 [From Neosporin ([id number])] neomycin Allergy Itching Verified 10/03/21 06:46 [From Neosporin ([id number])] polymyxin B Allergy Itching Verified 10/03/21 06:46 [From Neosporin ([id number])] Review of Systems Review of Systems: Gen.: Denies fevers or chills Respiratory: Denies shortness of breath or cough CV: Denies chest pain or palpitations GI: Denies abdominal pain nausea, emesis or diarrhea reports hemorrhoid Musculoskeletal: Denies back pain or muscle pain Neuro: Denies headache Skin: Denies rash Except as documented, all other systems reviewed and negative [facility] Past Medical History Medical History Acute renal failure Anxiety Atrial fibrillation, new onset History of Crohn's disease Hypomania Hypotestosteronism Insomnia BONNIE on CPAP Paroxysmal nocturnal dyspnea Surgical History Surgical History History of appendectomy History of lumbar laminectomy History of rhinoplasty Family History Family History Mother Hx of thyroidectomy Mother Thyroid malignant neoplasm Social History Social History Smoking status: Never smoker Alcohol intake: current Drinks per week: 8 Alcohol use details: social drinker Substance use: current Substance use type: marijuana Gender identity (if verbalized by the patient): Male Sexual Orientation (if Verbalized by the Patient): Straight or Heterosexual Spiritual care concerns: No Exam Narrative: APPEARANCE: No acute distress, nontoxic, resting in bed EYES: EOMI HEENT: Normocephalic, atraumatic, OMM RESPIRATORY: No respiratory distress Clear to auscultation bilaterally with no rhonchi wheezing or rales. CARDIOVASCULAR: Regular rate and rhythm without murmurs rubs or gallops. ABDOMINAL: Soft, nontender, nondistended, no rebound or guarding Rectal: Large hemorrhoid present at the 3 o'clock position there is tender to palpation there is no surrounding erythema or fluctuance there is no full thrombosis of the hemorrhoid at this time MUSCULOSKELETAl: Moves all extremities. NEURO: Awake and alert. Following commands, speech normal, no focal deficits SKIN:: Warm, dry. No rashes lesions or abrasions PSYCHIATRIC: Normal affect/mood, Course Course Emergency Course: Discussed with patient no longer on Xarelto. We did discuss lancing the hemorrhoid is not fully thrombosed at this time but suspect it may be if it does not improve in size I will refer to general surgery placed on Anusol cream Discussed with patient results of workup and diagnosis. Discussed need for follow-up with primary care, proper
--- NOTE | 2021-10-03 08:04 | PC.NURSE ---
PT stated he was disappointed with MD for not lancing the hemmrhoid. PT was given the surgeon number and told to call today for appointment.
== END 2021-10-03 08:11 | disposition home or self-care (01) ==
PROVIDERS: Emergency Provider Emergency Medicine; PCP Internal Medicine
DX: K64.9 Unspecified hemorrhoids (principal); I48.91 Unspecified atrial fibrillation; K50.90 Crohn's disease, unspecified, without complications; G47.33 Obstructive sleep apnea (adult) (pediatric)
CPT/HCPCS: 99283; A9270

== ENCOUNTER 2022-09-18 14:38 | Emergency (ER) | payer OTHER, SELFPAY ==
--- NOTE | ~2022-09-18 | CT_ITS ---
EXAMINATION: CT lumbar spine wo con DATE: 09/18/2022 15:22 INDICATION: Chronic back pain. TECHNIQUE: Computed tomography (CT) of the lumbar spine was performed without intravenous contrast. A utomated exposure control and iterative reconstruction technique were employed. The dose-length produ ct was 1072.52 mGy-cm. COMPARISON: Lumbar spine CT 12/21/2019 FINDINGS: Bone alignment is normal. Vertebral body heights are normal. There is mildly decreased disc height at L4-L5 and moderately decreased disc height at L5-S1. There is subcutaneous soft tissue gas posterior to the lumbar spine. The following disc levels are specifically discussed: L1-L2: The disc is bulging. There is mild bilateral facet joint osteoarthritis. There is mild left ne ural foraminal stenosis. There is mild central canal stenosis. L2-L3: The disc does not extend beyond the endplate margin. There is mild bilateral facet joint osteo arthritis. There is no neural foraminal stenosis. There is no central canal stenosis. L3-L4: There is a right foraminal protrusion. There is mild bilateral facet joint osteoarthritis. The re is mild right neural foraminal stenosis. There is mild central canal stenosis. L4-L5: The disc is bulging. There is severe right facet joint osteoarthritis. There are changes of re section of posterior elements on the left. There is moderate bilateral neural foraminal stenosis. The re is surgical changes of decompression of left neural foramen. There is mild central canal stenosis. L5-S1: The disc is bulging. There is severe right facet joint osteoarthritis. There is mild right edilson ral foraminal stenosis. There is surgical changes of decompression of left neural foramen. There is n o central canal stenosis. IMPRESSION: 1. Stable moderate lumbar spondylosis. 2. Subcutaneous soft tissue gas posterior to the lumbar spine, which may be secondary to recent inter vention or recent trauma. Reviewed, dictated and finalized at location E. IMPRESSION: 1. Stable moderate lumbar spondylosis. 2. Subcutaneous soft tissue gas posterior to the lumbar spine, which may be sec ondary to recent intervention or recent trauma.
[2022-09-18 14:40] VITALS: BP 154/97; PULSE 71; RESP 16; TEMP 36.7; O2SAT 100
[2022-09-18] MEDS: HYDROcodone/acetaminophen (*CRX) 5-325 MG TABLET 1 TAB PO (15:24)
[2022-09-18] MEDS: CYCLOBENZAPRINE HCL 10 MG TABLET PO (15:25)
[2022-09-18] MEDS: KETOROLAC 30 MG/ML VIAL (*BKC) IM (15:25)
--- NOTE | 2022-09-18 15:40 | ED.BACK ---
HPI - Back Pain/Injury General Chief Complaint: Back Pain/Injury <Kathya Rivas PA-C - Last Filed: 09/18/22 17:24> Stated Complaint: lower back pain <Kathya Rivas PA-C - Last Filed: 09/18/22 17:24> Time Seen by Provider: 09/18/22 14:52 <Kathya Rivas PA-C - Last Filed: 09/18/22 17:24> History of Present Illness HPI Narrative: 47-year-old male with history of A-fib, lumbar laminectomy 10 years ago reports for evaluation of low back pain for the past 2 months. Patient states proximally 2 months ago, he was running at softball and running the second base when he tweaked his back, he did not fall the ground. States since then he has had back pain and has been seeing a chiropractor 10-15 times for the past month. He reports he has been getting injections with lidocaine mixed with another agent that is not known and injecting it into his lats. He denies having midline injections. States the pain is recently been getting worse the past couple days, especially today. It is worse with movement of his hips and with ambulation and movement. States the pain is located throughout the entirety of his lower back and has not isolated to the midline. He denies radiation of pain, focal numbness or weakness, foot drop, fever, body aches or chills, nausea or vomiting, urinary complaints, loss of bowel or bladder control or retention, saddle anesthesia, skin changes or rashes, IV drug use, history of cancer, history immunosuppression. <DELLA Palmer Last Filed: 09/18/22 17:24> Related Data Home Medications: Home Medications Medication Instructions Recorded Confirmed zolpidem 5 mg tablet 5 mg PO DAILY 11/26/20 11/30/20 <DELLA Palmer Last Filed: 09/18/22 17:24> Allergies/Adverse Reactions: Allergies Allergy/AdvReac Type Severity Reaction Status Date / Time bacitracin Allergy Itching Verified 10/03/21 06:46 [From Neosporin ([id number])] neomycin Allergy Itching Verified 10/03/21 06:46 [From Neosporin ([id number])] polymyxin B Allergy Itching Verified 10/03/21 06:46 [From Neosporin ([id number])] <Kathya Rivas PA-C - Last Filed: 09/18/22 17:24> Review of Systems Review of Systems: CONSTITUTIONAL: Denies fever, chills EYES: Denies visual changes, redness, or discharge. ENT: Denies rhinorrhea, congestion, sore throat, or otalgia. CARDIOVASCULAR: Denies chest pain, palpitations, or edema. RESPIRATORY: Denies cough or dyspnea. GASTROINTESTINAL: Denies abdominal pain, nausea, vomiting, or diarrhea. GENITOURINARY: Denies dysuria or hematuria. SKIN: Denies rash or itching. MUSCULOSKELETAL: See HPI NEUROLOGIC: Denies headache, numbness, dizziness, or weakness. PSYCHIATRIC: Denies anxiety or depression. <Kathya Rivas PA-C - Last Filed: 09/18/22 17:24> [facility] Past Medical History Medical History: Medical History Acute renal failure Anxiety Atrial fibrillation, new onset History of Crohn's disease Hypomania Hypotestosteronism Insomnia BONNIE on CPAP Paroxysmal nocturnal dyspnea <Kathya Rivas PA-C - Last Filed: 09/18/22 17:24> Surgical History Surgical History: Surgical History History of appendectomy History of lumbar laminectomy History of rhinoplasty <Kathya Rivas PA-C - Last Filed: 09/18/22 17:24> Family History Family History: Family History Mother Hx of thyroidectomy Mother Thyroid malignant neoplasm <Kathya Rivas PA-C - Last Filed: 09/18/22 17:24> Social History Social History: Social History Smoking status: Never smoker Alcohol intake: current Drinks per week: 8 Alcohol use details: social drinker Substance use: current
== END 2022-09-18 17:35 | disposition home or self-care (01) ==
PROVIDERS: Emergency Provider Physician Assistant; PCP Internal Medicine
DX: M54.50 Low back pain, unspecified (principal); I48.91 Unspecified atrial fibrillation; K50.90 Crohn's disease, unspecified, without complications; G47.33 Obstructive sleep apnea (adult) (pediatric); M47.816 Spondylosis without myelopathy or radiculopathy, lumbar region
CPT/HCPCS: 72131; 96372; 99284; A9270; J1885

== ENCOUNTER 2024-05-20 07:26 | Outpatient (CLI) | payer OTHER, SELFPAY ==
--- NOTE | ~2024-05-20 | XR_ITS ---
3 VIEWS LUMBAR SPINE Ordering provider: Rd Barlow, History: . Acute bilat lbp w/o sciatica . Comparison: None. FINDINGS: VERTEBRAL BODIES: No visible fracture or subluxation. DISK SPACES: Narrowing of the disc L5-S1. SOFT TISSUES: Normal. IMPRESSION: No acute osseous abnormality lumbar spine. Degenerative disc disease at the level of L5-S1. Reviewed, dictated and finalized at location A.
--- NOTE | ~2024-05-20 | MR_ITS ---
EXAMINATION: MR lumbar spine wo con DATE: 05/20/2024 07:56 INDICATION: Acute low back pain without sciatica. TECHNIQUE: Magnetic resonance imaging (MRI) of the lumbar spine was performed without intravenous con trast. Sequences included sagittal T2-weighted FSE, sagittal T2-weighted FS FSE, sagittal T1-weighted FSE, and axial T2-weighted FSE. COMPARISON: Lumbar spine MRI 03/04/2012 FINDINGS: Alignment is normal. Vertebral body heights are normal. There is mildly decreased disc heig ht at L4-L5 and moderately decreased disc height at L5-S1. The distal spinal cord signal intensity is normal. The conus medullaris is at T12-L1. The following disc levels are specifically discussed: L1-L2: There is a right central extrusion with 17 mm inferior extension. There is mild bilateral face t joint osteoarthritis. There is no neural foraminal stenosis. There is mild central canal stenosis. L2-L3: The disc does not extend beyond the endplate margin. There is mild bilateral facet joint osteo arthritis. There is no neural foraminal stenosis. There is no central canal stenosis. L3-L4: There is a right foraminal protrusion. There is mild right facet joint osteoarthritis. There i s mild right neural foraminal stenosis. There is no central canal stenosis. L4-L5: The disc is bulging and has an annular fissure. There is severe right facet joint osteoarthrit is. There are changes of resection of the left facet joint. There is moderate bilateral neural forami nal stenosis. There is mild central canal stenosis. There is posterior decompression. L5-S1: The disc is bulging and has an annular fissure. There is mild right facet joint osteoarthritis . There are changes of resection at the left facet joint. There is no neural foraminal stenosis. Ther e is no central canal stenosis. IMPRESSION: 1. Moderate lower lumbar spondylosis. Reviewed, dictated and finalized at location B.
== END 2024-05-20 07:27 | disposition home or self-care (01) ==
LOC: MICIMG 07:29
PROVIDERS: PCP Internal Medicine; Visit Provider Physical Medicine & Rehabilitation
DX: M47.896 Other spondylosis, lumbar region (principal); Z98.890 Other specified postprocedural states; M51.379 Other intervertebral disc degeneration, lumbosacral region without mention of lumbar back pain or lower extremity pain
CPT/HCPCS: 72100; 72148